=== PATIENT | male | born 1945 | race Caucasian/White ===

== ENCOUNTER 2020-08-06 07:32 | Outpatient (REF) | payer MEDICARE, OTHER, SELFPAY ==
[2020-08-06 10:12] LABS: Glucose Urine UA NEG (NEG); Leukocyte Esterase Urine NEG (NEG); Nitrite Urine NEG (NEG); PH 5.5 (5.0-8.0); Specific Gravity - Urine 1.025 (1.005-1.025); Urine Blood NEG (NEG); Urine Ketones NEG (NEG); Urine Protein NEG (NEG-TRACE)
[2020-08-06 10:14] LABS: Appearance Urine CLEAR; Color Urine YELLOW
[2020-08-06 11:22] LABS: Cholesterol 137 mg/dL; HDL Cholesterol 38 mg/dL; LDL Cholesterol Calculated 76 mg/dl; Triglycerides 118 mg/dL
[2020-08-06 12:45] LABS: Prostate Specific Antigen Scr < 0.05 ng/mL (<0.05-4.0)
== END 2020-08-06 07:33 | disposition home or self-care (01) ==
LOC: HO.10HDL 07:32
PROVIDERS: PCP Internal Medicine Endocrinology, Diabetes & Metabolism; Visit Provider Urology
DX: Z12.5 Encounter for screening for malignant neoplasm of prostate (principal); E11.9 Type 2 diabetes mellitus without complications; C61 Malignant neoplasm of prostate; J18.9 Pneumonia, unspecified organism
CPT/HCPCS: 80061; 81003; 84153

== ENCOUNTER 2020-12-04 13:49 | Outpatient (REF) | payer MEDICARE, OTHER, SELFPAY ==
[2020-12-04 17:44] LABS: MANUAL DIFF FLAG NO
[2020-12-04 17:47] LABS: Basophils Absolute Auto 0.1 X10*3/uL (0.0-0.2); Basophils Percent Auto 0.7 % (0-2); Eosinophils Absolute Auto 0.2 X10*3/uL (0.0-0.4); Eosinophils Percent Auto 1.9 % (0-4); Hematocrit 37.9 % (42-52); Hemoglobin 13.1 g/dl (14.0-18.0); Imm Gran Abs Auto 0.02 X10*3/uL (0.00-0.03); Imm Gran Pct Auto 0.2 % (0.0-0.4); Lymphocytes Absolute Auto 3.4 X10*3/uL (1.2-4.9); Lymphocytes Percent Auto 40.7 % (20-40); Mean Corpuscular HGB Conc 34.6 g/dl (31.0-36.0); Mean Corpuscular Hemoglobin 31.3 pg (27.0-33.0); Mean Corpuscular Volume 90.5 fL (80-98); Mean Platelet Volume 10.6 fL (9.4-12.4); Monocytes Absolute Auto 0.8 X10*3/uL (0.1-1.2); Monocytes Percent Auto 9.5 % (2-11); Neutrophils Absolute Auto 3.9 X10*3/uL (2.0-8.3); Platelet Count 221 X10*3/uL (160-400); Red Blood Count 4.19 X10*6/uL (4.60-5.80); Red Cell Distribution Width 12.1 % (11.0-16.0); White Blood Count 8.3 X10*3/uL (4.8-10.8)
[2020-12-04 18:11] LABS: Estimated Average Glucose 123 mg/dL; Hemoglobin A1C 142.1739 umol/L; Hemoglobin A1c % 5.9 %
[2020-12-04 18:18] LABS: Alanine Aminotransferase 25 U/L (0-40); Albumin Level 4.2 g/dL (3.5-5.0); Alkaline Phosphatase 66 U/L (39-117); Amylase 65 U/L (28-100); Anion Gap 16 (12-20); Aspartate Amino Transferase 21 U/L (5-37); Bilirubin Direct 0.4 mg/dL (0.0-0.5); Bilirubin Total 0.9 mg/dL (0.0-1.0); Blood Urea Nitrogen 25 mg/dL (9-16); Calcium 9.2 mg/dL (8.4-10.2); Carbon Dioxide 24 mmol/L (22-29); Chloride 105 mmol/L (96-108); Estimated Glomerular Filt Rate 58; Glucose Random 162 mg/dL (60-115); Lipase 40 U/L (8-78); Potassium 4.5 mmol/L (3.3-5.1); Sodium 140 mmol/L (135-145); Total Protein 6.6 g/dL (6.5-8.0)
[2020-12-04 18:38] LABS: Thyroid Stimulating Hormone 0.49 uIU/mL (0.32-4.0)
== END 2020-12-04 13:50 | disposition home or self-care (01) ==
LOC: HO.MANLDS 13:49
PROVIDERS: PCP Internal Medicine; Visit Provider Physician Assistant
DX: R63.5 Abnormal weight gain (principal)
CPT/HCPCS: 36415; 80053; 80076; 82150; 82248; 83036; 83690; 84443; 85025

== ENCOUNTER 2021-11-01 08:07 | Outpatient (REF) | payer MEDICARE, OTHER, SELFPAY ==
[2021-11-01 11:59] LABS: Creatinine Urine 209.84 mg/dL; Microalbum/Creatinine Ratio Ur 2.3 ug/mg cr
[2021-11-01 12:08] LABS: Estimated Average Glucose 137 mg/dL; Hemoglobin A1c % 6.4 %
[2021-11-01 13:30] LABS: Alanine Aminotransferase 23 U/L (0-40); Albumin Level 4.1 g/dL (3.5-5.0); Alkaline Phosphatase 63 U/L (39-117); Anion Gap 12 (12-20); Aspartate Amino Transferase 18 U/L (5-37); Bilirubin Total 0.9 mg/dL (0.0-1.0); Blood Urea Nitrogen 17 mg/dL (9-16); Calcium 9.6 mg/dL (8.4-10.2); Carbon Dioxide 26 mmol/L (22-29); Chloride 108 mmol/L (96-108); Cholesterol 137 mg/dL; Estimated Glomerular Filt Rate 55; HDL Cholesterol 34 mg/dL; LDL Cholesterol Calculated 78 mg/dl; Potassium 4.9 mmol/L (3.3-5.1); Sodium 141 mmol/L (135-145); Total Protein 6.5 g/dL (6.5-8.0); Triglycerides 127 mg/dL
[2021-11-01 14:08] LABS: Glucose Fasting 127 mg/dL (60-99)
== END 2021-11-01 08:08 | disposition home or self-care (01) ==
LOC: HO.MANLDS 08:07
PROVIDERS: PCP Physician Assistant; Visit Provider Physician Assistant
DX: E11.9 Type 2 diabetes mellitus without complications (principal)
CPT/HCPCS: 36415; 80053; 80061; 82043; 83036

== ENCOUNTER 2022-01-24 07:34 | Outpatient (REF) | payer MEDICARE, OTHER, SELFPAY ==
[2022-01-24 11:19] LABS: Estimated Average Glucose 131 mg/dL; Hemoglobin A1c % 6.2 %
== END 2022-01-24 07:35 | disposition home or self-care (01) ==
LOC: HO.MANLDS 07:34
PROVIDERS: PCP Physician Assistant; Visit Provider Physician Assistant
DX: E11.9 Type 2 diabetes mellitus without complications (principal)
CPT/HCPCS: 36415; 83036

== ENCOUNTER 2022-08-22 07:21 | Day surgery (SDC) | payer MEDICARE, OTHER, SELFPAY ==
[2022-08-10 15:54] VITALS: BMI 26.1
--- NOTE | 2022-08-16 12:58 | P.CONAN_ITS ---
Documented by User: Kay Sales NP 08/16/22 12:59 HPI - Anesthesia Eval Consult details Narrative: 76yo M for Right Cataract Extraction IOL Insertion PCP cleared No previous cataract on record [facility] Past Medical History Medical History Arthritis Bifascicular bundle branch block CAD (coronary artery disease) Diabetes Elevated cholesterol GERD (gastroesophageal reflux disease) History of COVID-19 History of palpitations History of prostate cancer On beta candace at home PVCs (premature ventricular contractions) Surgical History Surgical History History of mandibular surgery History of prostatectomy Hx of colonoscopy Hx of esophagogastroduodenoscopy Social History Social History Are you a primary occasional caregiver to a significant other at home: No Do you presently have visiting nurse or other home services: No Patient Tobacco Use Status: Never used Tobacco Use of substances other than those prescribed or required for medical reasons: No Have you been hit, kicked, punched, or otherwise hurt by someone within the past year? If so, by whom?: No Are you DNR?: No Advance Directives: No Advance Directives Information Provided: Yes Advance Directives on File: No Recently lost weight without trying: No Eating poorly because of decreased appetite: No Nutrition Risks: No Nutritional Risk Meds Allergies Allergy/AdvReac Type Severity Reaction Status Date / Time No Known Allergies Allergy Unverified 08/10/22 15:11 Home Medications Medication Instructions Recorded Confirmed Last Taken Type atorvastatin 80 mg tablet 1 tab PO DAILY 08/10/22 08/10/22 08/21/22 History ipratropium bromide 42 mcg (0.06 spray intranasal 08/10/22 08/21/22 History %) nasal spray lisinopril 20 mg tablet 1 tab PO DAILY 08/10/22 08/10/22 08/21/22 History metoprolol succinate 50 mg 1 tab PO BID 08/10/22 08/10/22 08/22/22 History tablet,extended release 24 hr omeprazole 20 mg capsule,delayed 1 cap PO QAM 08/10/22 08/10/22 08/22/22 History release Exam Exam Date and Time: August 16, 2022 1258 Height,Weight and Vital Signs: Height 5 ft 8 in Weight 78.018 kg Assessment and Plan Assessment Anesthesia Assessment: Chart Reviewed Documented by User: Albert Dawson MD 08/22/22 13:22 HPI - Anesthesia Eval Consult details Narrative: 76yo M for Right Cataract Extraction IOL Insertion SVT , CAD , bifasicular block . RCA 70-80 % stenosis . normal LV mild AAA 2.4 cm PCP cleared No previous cataract on record [facility] Past Medical History Medical History Arthritis Bifascicular bundle branch block CAD (coronary artery disease) Diabetes Elevated cholesterol GERD (gastroesophageal reflux disease) History of COVID-19 History of palpitations History of prostate cancer On beta candace at home PVCs (premature ventricular contractions) Family History Family history of problems with anesthesia: No Surgical History Surgical History History of mandibular surgery History of prostatectomy Hx of colonoscopy Hx of esophagogastroduodenoscopy History of Problems with Anesthesia: No Social History Social History Are you a primary occasional caregiver to a significant other at home: No Do you presently have visiting nurse or other home services: No Patient Tobacco Use Status: Never used Tobacco Use of substances other than those prescribed or required for medical reasons: No Have you been hit, kicked, punched, or otherwise hurt by someone within the past year? If so, by whom?: No Are you DNR?: No Advance Directives: No Advance Directives Information Provided: Yes Advance Directives on File: No Recently lost weight without trying: No Eating poorly because of decreased appetite: No Nutrition Risks: No Nutritional Risk Meds Allergies Allergy/AdvReac Type Severity Reaction Status Date / Time No Known Allergies Allergy Unverified 08/10/22 15:11 Home Medications Medication Instructions Recorded Confirmed Last Taken Type atorvastatin 80 mg tablet 1 tab PO DAILY 08/10/22 08/10/22 08/21/22 History ipratropium bromide 42 mcg (0.06 spray intranasal 08/10/22 08/21/22 History %) nasal spray lisinopril 20 mg tablet 1 tab PO DAILY 08/10/22 08/10/22 08/21/22 History metoprolol succinate 50 mg 1 tab PO BID 08/10/22 08/10/22 08/22/22 History tablet,extended release 24 hr omeprazole 20 mg capsule,delayed 1 cap PO QAM 08/10/22 08/10/22 08/22/22 History release Exam Airway Mallampati Class: III TM Dist: >3cm Neck ROM: Full Loose/Missing/Broken Teeth: Yes (Fillings ) Heart: S1,S2 Lungs: b/l breath sounds Assessment and Plan Assessment Anesthesia Assessment: Anesthesia Plan Discussed Final Anesthetic Review Family History of Problems with Anesthesia: No History of Problems with Anesthesia: No NPO: Yes ASA Class: III Final Preanesthetic Review: Meds/Allgs Chart Reviewed, Consent Obtained/Reviewed and Anes Risks/Benef Reviewed Patient Risk: Intermediate Procedure Risk: Intermediate Anesthetic Plan Anesthetic Plan: MAC: Disposition: Standard PACU
--- NOTE | 2022-08-17 08:32 | MHC.SHP ---
Pre-Procedural Eval Section A Date of Service: 08/17/22 The patient is an INPATIENT: No Changes since office visit: No Cold of Flu in the past 2 weeks, No New Medical Problems, No Changes in Medication and No Patient answered all questions The History & Physical has been completed within 30 days and I have reviewed it.: Yes Section B Chief Complaint: Age-related nuclear cataract, right eye Allergies: Allergies Allergy/AdvReac Type Severity Reaction Status Date / Time No Known Allergies Allergy Unverified 08/10/22 15:11 Plan Diagnosis/Plan: Unchanged I have reviewed the history and physical and performed a pertinent physical examination on my patient. No changes have occurred unless specified.
[2022-08-22 09:30] VITALS: BP 163/58; PULSE 55; RESP 16; TEMP 36.1; O2SAT 98
[2022-08-22] MEDS: Tetracaine HCl/PF 0.5% Oph Sol 4 ML DROPS 1 DROP EYE-RIGHT (09:35)
[2022-08-22] MEDS: Cyclopentolate 1 % Ophth Sol 2 ML DRPBTL 1 DROP EYE-RIGHT ×3 (09:37→09:44)
[2022-08-22] MEDS: Lactated Ringers 500 ML 50 ML IV (09:38)
[2022-08-22] MEDS: Ketorolac Tromethamine 0.5% Op 5 ML DROPS 1 DROP EYE-RIGHT ×3 (09:39→09:44)
[2022-08-22] MEDS: Tropicamide 1 % Ophth Sol 3 ML BTL 1 DROP EYE-RIGHT ×3 (09:39→09:44)
[2022-08-22] MEDS: Phenylephrine HCL 2.5% Oph SoL 2 ML BOTTLE 1 DROP EYE-RIGHT ×3 (09:40→09:44)
--- NOTE | 2022-08-22 12:02 | HO.PNOPHT ---
Ophthalmology Procedure Procedure Date of Service: 08/22/22 Ophthalmology Viscoelastic: Healshira Rincont Dual Pack Pro Ophthalmology Lenses: TECMEMO [id number] (18) Procedure Notes: PREOPERATIVE DIAGNOSIS: Decreased visual acuity right eye secondary to cataract POSTOPERATIVE DIAGNOSIS: Same PROCEDURE: Right cataract extraction with intraocular lens insertion SURGEON: Umberto Pitt M.D. ANESTHESIA: Topical/MAC ESTIMATED BLOOD LOSS: None COMPLICATIONS: None After obtaining informed consent, the patient was brought to the operating room suite and placed in the supine position. After adequate sedation per anesthesia, topical drops of Tetracaine were given to the right eye. The eye was then prepped and draped in the usual sterile fashion. The operating room microscope was then positioned over the operative eye and a lid speculum placed. A paracentesis was created. Viscoelastic was then instilled into the anterior chamber. A three plane incision was then created temporally, utilizing a 2.85 mm keratome. Capsulotomy forceps were then utilized to create a circular tear capsulotomy. Hydrodissection and hydrodelineation were carried out until adequate mobilization of the nucleus occurred. Phacoemulsification was then utilized to remove the dense central nucleus followed by removal of the cortical material utilizing the automated aspiration irrigation unit. Viscoelastic was instilled into the posterior capsular bag followed by placement of a posterior chamber intraocular lens without difficulty. The residual Viscoelastic was then removed utilizing the automated IA machine. The wound was checked and found to be watertight. The patient tolerated the procedure well and the lid speculum was removed. Intracameral injection of Vigamox 0.1 mL followed by a subtenon injection of Kenalog-40 0.2 mL were administered. The patient will be seen in the a.m.
[2022-08-22 12:34] VITALS: BP 128/60; PULSE 57; RESP 16; TEMP 36.4; O2SAT 96
== END 2022-08-22 12:35 | disposition home or self-care (01) ==
PROVIDERS: PCP Internal Medicine; Visit Provider Ophthalmology
PROC: (CPT 66985; principal; 2022-08-22 09:50)
DX: H25.11 Age-related nuclear cataract, right eye (principal); H52.4 Presbyopia; H47.323 Drusen of optic disc, bilateral; I10 Essential (primary) hypertension; E11.9 Type 2 diabetes mellitus without complications; E78.00 Pure hypercholesterolemia, unspecified; Z86.16 Personal history of COVID-19; Z79.899 Other long term (current) drug therapy
CPT/HCPCS: 66984; J2250; J3300; J7999; V2632

== ENCOUNTER 2022-09-05 07:21 | Day surgery (SDC) | payer MEDICARE, OTHER, SELFPAY ==
[2022-08-11 10:36] VITALS: BMI 26.1
--- NOTE | 2022-09-01 08:45 | MHC.SHP ---
Pre-Procedural Eval Section A Date of Service: 09/01/22 The patient is an INPATIENT: No Changes since office visit: No Cold of Flu in the past 2 weeks, No New Medical Problems, No Changes in Medication and No Patient answered all questions The History & Physical has been completed within 30 days and I have reviewed it.: Yes Section B Chief Complaint: Age-related nuclear cataract, left eye Allergies: Allergies Allergy/AdvReac Type Severity Reaction Status Date / Time No Known Allergies Allergy Unverified 08/10/22 15:11 Plan Diagnosis/Plan: Unchanged I have reviewed the history and physical and performed a pertinent physical examination on my patient. No changes have occurred unless specified.
--- NOTE | 2022-09-02 09:40 | P.CONAN_ITS ---
Documented by User: Kay Sales NP 09/02/22 09:40 HPI - Anesthesia Eval Consult details Narrative: 76yo M for Left?Cataract Extraction IOL Insertion PCP cleared Right eye 08/22/22 with MAC: [facility] Past Medical History Medical History Arthritis Bifascicular bundle branch block CAD (coronary artery disease) Diabetes Elevated cholesterol GERD (gastroesophageal reflux disease) History of COVID-19 History of palpitations History of prostate cancer On beta cnadace at home PVCs (premature ventricular contractions) Family History Family history of problems with anesthesia: No Surgical History Surgical History History of mandibular surgery History of prostatectomy Hx of colonoscopy Hx of esophagogastroduodenoscopy History of Problems with Anesthesia: No Social History Social History Are you a primary health and social care teacher to a significant other at home: No Do you presently have visiting nurse or other home services: No Patient Tobacco Use Status: Never used Tobacco Use of substances other than those prescribed or required for medical reasons: No Have you been hit, kicked, punched, or otherwise hurt by someone within the past year? If so, by whom?: No Are you DNR?: No Advance Directives: No Advance Directives Information Provided: Yes Advance Directives on File: No Meds Allergies Allergy/AdvReac Type Severity Reaction Status Date / Time No Known Allergies Allergy Unverified 08/10/22 15:11 Home Medications Medication Instructions Recorded Confirmed Last Taken Type atorvastatin 80 mg tablet 1 tab PO DAILY 08/10/22 08/10/22 08/21/22 History ipratropium bromide 42 mcg (0.06 spray intranasal 08/10/22 09/05/22 06:30 History %) nasal spray lisinopril 20 mg tablet 1 tab PO DAILY 08/10/22 08/10/22 08/21/22 History metoprolol succinate 50 mg 1 tab PO BID 08/10/22 08/10/22 09/05/22 06:30 History tablet,extended release 24 hr omeprazole 20 mg capsule,delayed 1 cap PO QAM 08/10/22 08/10/22 08/22/22 History release Exam Exam Date and Time: September 02, 2022 0940 Height,Weight and Vital Signs: Height 5 ft 8 in Weight 78.018 kg Assessment and Plan Assessment Anesthesia Assessment: Chart Reviewed Final Anesthetic Review Family History of Problems with Anesthesia: No History of Problems with Anesthesia: No Documented by User: Ally Bautista MD 09/05/22 08:23 [facility] Past Medical History Medical History Arthritis Bifascicular bundle branch block CAD (coronary artery disease) Diabetes Elevated cholesterol GERD (gastroesophageal reflux disease) History of COVID-19 History of palpitations History of prostate cancer On beta candace at home PVCs (premature ventricular contractions) Surgical History Surgical History History of mandibular surgery History of prostatectomy Hx of colonoscopy Hx of esophagogastroduodenoscopy Social History Social History Are you a primary health and social care teacher to a significant other at home: No Do you presently have visiting nurse or other home services: No Patient Tobacco Use Status: Never used Tobacco Use of substances other than those prescribed or required for medical reasons: No Have you been hit, kicked, punched, or otherwise hurt by someone within the past year? If so, by whom?: No Are you DNR?: No Advance Directives: No Advance Directives Information Provided: Yes Advance Directives on File: No Meds Allergies Allergy/AdvReac Type Severity Reaction Status Date / Time No Known Allergies Allergy Unverified 08/10/22 15:11 Home Medications Medication Instructions Recorded Confirmed Last Taken Type atorvastatin 80 mg tablet 1 tab PO DAILY 08/10/22 08/10/22 08/21/22 History ipratropium bromide 42 mcg (0.06 spray intranasal 08/10/22 09/05/22 06:30 History %) nasal spray lisinopril 20 mg tablet 1 tab PO DAILY 1108/10/22 08/21/22 History metoprolol succinate 50 mg 1 tab PO BID 08/10/22 08/10/22 09/05/22 06:30 History tablet,extended release 24 hr omeprazole 20 mg capsule,delayed 1 cap PO QAM 08/10/22 08/10/22 08/22/22 History release Exam Airway Mallampati Class: II TM Dist: >3cm Neck ROM: Full Heart: rrr Lungs: cta Assessment and Plan Assessment Anesthesia Assessment: Anesthesia Plan Discussed Final Anesthetic Review NPO: Yes ASA Class: III Final Preanesthetic Review: No Changes in Pt Med Stat, Meds/Allgs Chart Reviewed and Consent Obtained/Reviewed Patient Risk: Intermediate Procedure Risk: Intermediate Anesthetic Plan Anesthetic Plan: MAC: Disposition: Standard PACU
[2022-09-05 08:14] VITALS: BP 158/65; PULSE 61; RESP 16; TEMP 36.5; O2SAT 97
[2022-09-05] MEDS: Tetracaine HCl/PF 0.5% Oph Sol 4 ML DROPS 1 DROP EYE-LEFT (08:18)
[2022-09-05] MEDS: Cyclopentolate 1 % Ophth Sol 2 ML DRPBTL 1 DROP EYE-LEFT ×3 (08:21→08:37)
[2022-09-05] MEDS: Tropicamide 1 % Ophth Sol 3 ML BTL 1 DROP EYE-LEFT ×3 (08:23→08:38)
[2022-09-05] MEDS: Ketorolac Tromethamine 0.5% Op 5 ML DROPS 1 DROP EYE-LEFT ×3 (08:24→08:39)
[2022-09-05] MEDS: Phenylephrine HCL 2.5% Oph SoL 2 ML BOTTLE 1 DROP EYE-LEFT ×3 (08:26→08:41)
[2022-09-05 08:29] LABS: Glucose, Whole Blood 114 mg/dL (60-115)
[2022-09-05] MEDS: Lactated Ringers 500 ML 50 ML IV (08:39)
[2022-09-05 08:43] VITALS: PULSE 42
--- NOTE | 2022-09-05 10:29 | HO.PNOPHT ---
Ophthalmology Procedure Procedure Date of Service: 09/05/22 Ophthalmology Viscoelastic: Healon Duet Dual Pack Pro Ophthalmology Lenses: TECNIS [id number] (18.5) Procedure Notes: PREOPERATIVE DIAGNOSIS: Decreased visual acuity left eye secondary to cataract POSTOPERATIVE DIAGNOSIS: Same PROCEDURE: Left cataract extraction with intraocular lens insertion SURGEON: Umberto Pitt M.D. ANESTHESIA: Topical/MAC ESTIMATED BLOOD LOSS: None COMPLICATIONS: None After obtaining informed consent, the patient was brought to the operation room suite and placed in the supine position. After adequate sedation per anesthesia, topical drops of Tetracaine were given to the left eye. The eye was then prepped and draped in the usual sterile fashion. The operating room microscope was then positioned over the operative eye and a lid speculum placed. A paracentesis was created. Viscoelastic was then instilled into the anterior chamber. A three plane incision was then created temporally, utilizing a 2.85 mm keratome. Capsulotomy forceps were then utilized to create a circular tear capsulotomy. Hydrodissection and hydrodelineation were carried out until adequate mobilization of the nucleus occurred. Phacoemulsification was then utilized to remove the dense central nucleus followed by removal of the cortical material utilizing the automated aspiration irrigation unit. Viscoat elastic was instilled into the posterior capsular bag followed by placement of a posterior chamber intraocular lens without difficulty. The residual Viscoat elastic was then removed utilizing the automated IA machine. The wound was check and found to be watertight. The patient tolerated the procedure well and the lid speculum was removed. Intracameral injection of Vigamox 0.1 mL followed by a subtenon injection of Kenalog-40 0.2 mL were administered. The patient will be seen in the a.m.
[2022-09-05 10:55] VITALS: BP 128/55; PULSE 50; RESP 12; TEMP 36.6; O2SAT 98
== END 2022-09-05 11:06 | disposition home or self-care (01) ==
PROVIDERS: PCP Internal Medicine; Visit Provider Ophthalmology
PROC: (CPT 66985; principal; 2022-09-05 10:10)
DX: H25.12 Age-related nuclear cataract, left eye (principal); H52.4 Presbyopia; H47.323 Drusen of optic disc, bilateral; I10 Essential (primary) hypertension; E11.9 Type 2 diabetes mellitus without complications; E78.00 Pure hypercholesterolemia, unspecified; Z79.82 Long term (current) use of aspirin; Z86.16 Personal history of COVID-19; Z79.899 Other long term (current) drug therapy
CPT/HCPCS: 66984; 82947; J2250; J3010; J3301; J7999; V2632